=== PATIENT | female | born 1995 | race Caucasian/White ===

== ENCOUNTER → 2018-04-13 09:40 | Outpatient (CLI) | payer OTHER, SELFPAY ==
[2018-04-13 12:27] LABS: Hemoglobin 12.4 g/dL (12.0-16.0)
[2018-04-13 13:08] LABS: GTT (PREG) 1 Hour PP 50gm Dose 107 mg/dL (76-139)
== END ==
PROVIDERS: Visit Provider Specialist
DX: Z3A.26 26 weeks gestation of pregnancy (principal)
CPT/HCPCS: 36415; 82950; 85014; 85018

== ENCOUNTER → 2018-06-17 09:15 | Outpatient (CLI) | payer OTHER, SELFPAY ==
[2018-06-18 08:17] LABS: Strep Grp B PCR NEG for Grp B Strep
== END ==
PROVIDERS: Visit Provider Specialist
DX: Z34.03 Encounter for supervision of normal first pregnancy, third trimester (principal); Z3A.36 36 weeks gestation of pregnancy
CPT/HCPCS: 87653

== ENCOUNTER 2018-07-18 23:44 | Inpatient (IN) | payer OTHER, SELFPAY ==
[2018-07-19 01:28] LABS: Add Manual Diff / Slide Review NO; Basophils Percent Auto 0.2 % (0-2); Eosinophils Percent Auto 0.6 % (2-4); Hematocrit 36.1 % (36-46); Hemoglobin 12.3 g/dL (12.0-16.0); Mean Corpuscular HGB Conc 34.1 % (30-36); Mean Corpuscular Hemoglobin 31.1 PG (26-34); Mean Corpuscular Volume 91.2 fL (80-100); Monocytes Percent Auto 7.7 % (3-14); Neutrophils Absolute Auto 7000 /uL (3000-5900); Neutrophils Percent Auto 70.5 % (50-75); Platelet Count 195 X10^3/uL (150-400); Red Blood Cell Count 3.96 X10^6/uL (4.0-5.2); Red Cell Distribution Width 13.8 % (11.6-14.8)
--- NOTE | 2018-07-19 07:19 | PM.OBHP.1 ---
OB HPI Date/Time Date of admission: 07/19/18 Date Patient Seen: 07/19/18 Time Patient Seen: 07:30 History of Present Condition Chief complaint: evaluation of labor : 1 Para: 0 Estimated Date of Delivery: 07/13/18 Estimated Gestational Age (weeks): 40w 6d Narrative: Regina Moody is a 23 year old female, at 40+6 weeks gestation, who presented after rupture of membranes at home at approximately 9:40 PM on 07/18/18. Initial care with the [place] [facility] with transfer of care to Dr. Correa at 24 weeks. 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) Medical complications: none Preadmission Labs Blood type: O (+) positive -: Antibody screen: negative, GBS status: negative, HBsAG: negative, HIV: negative, HSV 2: positive and RPR/VDLR: negative -: Chlamydia screen: not detected and Gonorrhea screen: not detected -: Rubella: immune and Varicella: immune HCT: 41.3 HCAB: negative Quad screen: Normal Urine: Negative 1 hr GTT: 107 Evaluation Evaluation Baseline heart rate: 135 Variability: Moderate (11-25) monitor accelerations: Present monitor decelerations: Absent Contraction Frequency (minutes): 4 Uterine Contraction Intensity: Moderate Category of Tracing: I Cervical dilation (cm): 3 Cervical effacement (%): 90 station: -2 Laboratory results: Laboratory Tests 07/19/18 07/19/18 00:30 00:30 WBC 10.0 RBC 3.96 L Hgb 12.3 Hct 36.1 MCV 91.2 MCH 31.1 MCHC 34.1 RDW 13.8 Plt Count 195 Neut % (Auto) 70.5 Lymph % (Auto) 21.0 L [place] % (Auto) 7.7 Eos % (Auto) 0.6 L Baso % (Auto) 0.2 Neut # (Auto) 7000 H Blood Type O Positive Antibody Screen Negative [facility] Medical History Anxiety (Chronic) Genital herpes (Chronic) Social History marital status: Smoking Status: Former smoker Meds Home Medications Medication Instructions Recorded Confirmed Type breast pump #1 each 05/04/18 07/19/18 Rx valacyclovir [Valtrex] 500 mg PO DAILY 07/19/18 07/19/18 History Allergies Allergy/AdvReac Type Severity Reaction Status Date / Time adhesive Allergy Mild Verified 07/19/18 01:17 Review of Systems Constitutional Constitutional: Denies fever(s) and Denies headache(s) ENT Ears, Nose, Mouth, and Throat: No headache(s) Cardiovascular Cardiovascular: Denies chest pain Respiratory Respiratory: Denies cough Neurologic Neurologic: Denies headache(s) and Denies other visual disturbances Exam Const General: cooperative and healthy appearing HENMT Head: normal to inspection Ears: hearing grossly normal bilaterally Nose: external nose normal Face and sinus: normal facial exam Mouth: oral mucosae normal Teeth and gingiva: dentition normal Throat: posterior oropharynx normal Eyes General: appearance normal, both eyes and all related structures Neck Neck: normal visual inspection Resp Effort & Inspection: normal respiratory effort Auscultation: clear to auscultation bilaterally Cardio Rate: regular rate Rhythm: regular rhythm Presentation: vertex Estimated Weight (lbs): 8 Extrem General: normal to inspection and no pedal edema Objective Labs Result Diagrams: 07/19/18 00:30 Labs: Laboratory Results - last 24 hr 07/19/18 07/19/18 00:30 00:30 WBC 10.0 RBC 3.96 L Hgb 12.3 Hct 36.1 MCV 91.2 MCH 31.1 MCHC 34.1 RDW 13.8 Plt Count 195 Neut % (Auto) 70.5 Lymph % (Auto) 21.0 L [place] % (Auto) 7.7 Eos % (Auto) 0.6 L Baso % (Auto) 0.2 Neut # (Auto) 7000 H Blood Type O Positive Antibody Screen Negative Assessment and Plan (1) 40 weeks gestation of : Current visit: Yes Status: Acute 23 year old at 40+6 weeks gestation by first trimester US. GBS negative. SROM clear fluid at 9:40 PM on 07/18/18. Slow progress overnight though patient is becoming more painful and requesting epidural. Plan - Epidural now - May require pitocin augmentation - Anticipate
[2018-07-19 07:21] VITALS: BP 125/76
[2018-07-19] MEDS: LACTATED RINGERS 1,000 ML 100 ML IV (09:43)
[2018-07-19] MEDS: OXYTOCIN PREMIX 30 UNIT/500 ML PLAST..BAG IV (09:44)
--- NOTE | 2018-07-19 12:38 | PM.OBPNLAB ---
Date/Time Date Patient Seen: 07/19/18 Time Patient Seen: 12:26 Pain Control Pain control: tolerating well and epidural Pelvic Exam Dilation (cm): 4 Effacement (%): 90 station: -2 Contractions Monitor mode: External Pitocin rate (mU/min): 9 Contraction frequency (min): 3 Contraction pattern: Regular Status status: Category ll Heart Rate Baseline: 135 Monitor Accelerations: Present Monitor Decelerations: Prolonged (deceleration to 90s lasting 5 min when patient was turned to the left side, resolved when turned to the right side) Monitor Variability: Moderate Assessment and Plan Assessment: active labor Plan: continuous present management Comments:
--- NOTE | 2018-07-19 13:15 | PM.OBPNLAB ---
Date/Time Date Patient Seen: 07/19/18 Time Patient Seen: 13:16 Pain Control Pain control: tolerating well Comments: Feeling increased pelvic pressure Pelvic Exam Dilation (cm): 6 Effacement (%): 100 station: -2 Comments: Molding present, bloody show Contractions Monitor mode: External Pitocin rate (mU/min): 9 Contraction frequency (min): 3 Contraction pattern: Regular Status status: Category l Heart Rate Baseline: 135 Monitor Accelerations: Present Monitor Decelerations: Early Assessment and Plan Assessment: active labor Plan: continuous present management
--- NOTE | 2018-07-19 17:17 | PM.OBPNLAB ---
Date/Time Date Patient Seen: 07/19/18 Time Patient Seen: 17:00 Pain Control Pain control: tolerating well and epidural Pelvic Exam Dilation (cm): 6 Effacement (%): 100 station: -2 Contractions Monitor mode: External Pitocin rate (mU/min): 9 Contraction frequency (min): 3 Contraction pattern: Regular Status status: Category ll Heart Rate Baseline: 140 Monitor Accelerations: Present Monitor Decelerations: Variable Monitor Variability: Moderate Assessment and Plan Assessment: active labor Plan: other Comments: Little cervical change despite frequent contractions so IUPC placed to determine adequacy of contractions. Recheck cervix in two hours.
[2018-07-19] MEDS: CEFAZOLIN 2 GM/100 ML FROZ.PIGGY IV (19:59)
--- NOTE | 2018-07-19 22:38 | PM.OBPRVD ---
Events: Labor Augmentation, Prolonged Rupture of Membrane and Meconium Stained Fluid Delivery date: 07/19/18 Intrapartal events: Febrile Delivery monitor: external FHT and internal uterine Route of delivery: Laceration description: Perineal - 2nd Degree Delivery repair: vicryl Estimated blood loss (mL): 400 Anesthesia type: Epidural Narrative: VAGINAL DELIVERY NOTE BRIEF HISTORY: Patient is a 23-year-old at 40+6 weeks who gave on 07/19/18 at 9:58 p.m CISCO: 07/13/18 Hospital problems: 40 weeks of Epidural anesthesia Prolonged rupture of membranes STAGE I: Labor Patient presented to the center the night of 07/18/18 with spontaneous rupture of membranes with clear fluid at home at approximately 9:40 p.m. She was kari regularly with slow cervical change. Given ROM, pitocin was started for augmentation. She continued to progress slowly so IUPC was placed to determine adequacy of contractions. Patient progressed to complete at 21:23. heart tones were category 2 throughout labor due to intermittent late and variable decelerations. Prior to pushing patient developed a fever to 39 degrees Celsius and heart rate increased to the 170s though patient did not have foul-smelling amniotic fluid or abdominal pain to suggest chorioamnionitis. She did receive a dose of cefazolin at 22 hours of rupture. Stage one duration: 11 hours and 43 minutes. Analgesia: epidural. STAGE II: Delivery The second stage of labor lasted 35 minutes. Spontaneous vaginal delivery occurred at 9:58 p.m. on 07/19/18. Presentation was SOP[place]. There was a tight nuchal cord which was reduced. There was an approximately 1 minute shoulder dystocia relieved with Deshawn maneuver. There was a gush of thick meconium with delivery of the . Infant was placed on mother's abdomen. 1 minute was 2 so was taken to the warmer where he received PPV briefly with rapid improvement of respirations. He was quickly transitioned back to mother. Five and 10 minutes Apgars were 6 and 8 respectively. Cord gases were requested however not completed. STAGE III: Placenta/Cord The third stage of labor lasted 5 minutes. Placenta delivered after active management with a three-vessel cord and appeared intact. Fundus was firm at umbilicus. He second degree vaginal and perineal laceration was repaired with 4 O Vicryl in the usual fashion. Hemostasis achieved. EBL: 400 mL. Mother's temperature returned to normal shortly after delivery. Needle and sponge counts were correct. The vagina was inspected and no items were left in situ. Patient was doing well with Kyle , her and at bedside.
--- NOTE | 2018-07-19 22:42 | P.PCNOB_ITS ---
Events: Labor Augmentation, Prolonged Rupture of Membrane and Meconium Stained Fluid Delivery date: 07/19/18 Intrapartal events: Febrile Delivery monitor: external FHT and internal uterine Route of delivery: Laceration description: Perineal - 2nd Degree Delivery repair: vicryl Estimated blood loss (mL): 400 Anesthesia type: Epidural Narrative: VAGINAL DELIVERY NOTE BRIEF HISTORY: Patient is a 23-year-old at 40+6 weeks who gave on 07/19/18 at 9:58 p.m CISCO: 07/13/18 Hospital problems: 40 weeks of Epidural anesthesia Prolonged rupture of membranes STAGE I: Labor Patient presented to the center the night of 07/18/18 with spontaneous rupture of membranes with clear fluid at home at approximately 9:40 p.m. She was kari regularly with slow cervical change. Given ROM, pitocin was started for augmentation. She continued to progress slowly so IUPC was placed to determine adequacy of contractions. Patient progressed to complete at 21: 23. heart tones were category 2 throughout labor due to intermittent late and variable decelerations. Prior to pushing patient developed a fever to 39 degrees Celsius and heart rate increased to the 170s though patient did not have foul-smelling amniotic fluid or abdominal pain to suggest chorioamnionitis. She did receive a dose of cefazolin at 22 hours of rupture. Stage one duration: 11 hours and 43 minutes. Analgesia: epidural. STAGE II: Delivery The second stage of labor lasted 35 minutes. Spontaneous vaginal delivery occurred at 9:58 p.m. on 07/19/18. Presentation was SOPHIE. There was a tight nuchal cord which was reduced. There was an approximately 1 minute shoulder dystocia relieved with Deshawn maneuver. There was a gush of thick meconium with delivery of the infant. Infant was placed on mother's abdomen. 1 minute was 2 so was taken to the warmer where he received PPV briefly with rapid improvement of respirations. He was quickly transitioned back to mother. Five and 10 minutes Apgars were 6 and 8 respectively. Cord gases were requested however not completed. STAGE III: Placenta/Cord The third stage of labor lasted 5 minutes. Placenta delivered after active management with a three-vessel cord and appeared intact. Fundus was firm at umbilicus. He second degree vaginal and perineal laceration was repaired with 4 O Vicryl in the usual fashion. Hemostasis achieved. EBL: 400 mL. Mother's temperature returned to normal shortly after delivery. Needle and sponge counts were correct. The vagina was inspected and no items were left in situ. Patient was doing well with Kyle , her and at bedside.
[2018-07-20] MEDS: IBUPROFEN 600 MG TABLET PO ×2 (01:58→09:02)
[2018-07-20] MEDS: ACETAMINOPHEN 325 MG TABLET 650 MG PO ×2 (01:59→09:01)
[2018-07-20] MEDS: DOCUSATE 250 MG CAPSULE PO (09:01)
[2018-07-20 09:06] LABS: Add Manual Diff / Slide Review NO; Basophils Percent Auto 0.2 % (0-2); Eosinophils Percent Auto 0.4 % (2-4); Hematocrit 30.6 % (36-46); Hemoglobin 10.6 g/dL (12.0-16.0); Lymphocytes Percent Auto 9.9 % (25-40); Mean Corpuscular HGB Conc 34.6 % (30-36); Mean Corpuscular Hemoglobin 31.5 PG (26-34); Mean Corpuscular Volume 91.2 fL (80-100); Monocytes Percent Auto 6.6 % (3-14); Neutrophils Absolute Auto 17200 /uL (3000-5900); Neutrophils Percent Auto 82.9 % (50-75); Platelet Count 156 X10^3/uL (150-400); Red Blood Cell Count 3.35 X10^6/uL (4.0-5.2); Red Cell Distribution Width 13.8 % (11.6-14.8); White Blood Cell Count 20.7 X10^3/uL (4.5-11.0)
--- NOTE | 2018-07-20 15:41 | PM.OBPN.1 ---
Subjective - OB Interval history: The patient reports she is sore all over but doing well. Bleeding is similar to a period. is going well. Pain is well controlled. She is ambulating, eating and voiding without difficulty. [place] baby status: doing well [place] feeding status: exclusively breast feeding Date Patient Seen: 07/20/18 Time Patient Seen: 14:42 Exam Vital Signs (past 8 hours): Temperature 97.9? blood pressure 122/79 heart rate 94 respirations 16 Narrative Exam Narrative: General: Awake and alert, no acute distress. HEENT: NCAT, EOMI, moist oral mucosa CV: Regular rate and rhythm, no murmurs, rubs or gallops Lungs: CTAB, no wheezes, rales, or rhonchi Abdomen: Soft, nontender; bowel tones active; uterus firm 1 cm below umbilicus Extremities: Warm, trace edema bilaterally, 2+ pedal pulses bilaterally Objective Labs Result Diagrams: 07/20/18 07:00 Labs: Laboratory Results - last 24 hr 07/20/18 07:00 WBC 20.7 H D RBC 3.35 L Hgb 10.6 L Hct 30.6 L MCV 91.2 MCH 31.5 MCHC 34.6 RDW 13.8 Plt Count 156 Neut % (Auto) 82.9 H Lymph % (Auto) 9.9 L [place] % (Auto) 6.6 Eos % (Auto) 0.4 L Baso % (Auto) 0.2 Neut # (Auto) 35271 H Assessment & Plan (1) 40 weeks gestation of : Status: Acute Current Visit: Yes (2) (spontaneous vaginal delivery): Status: Acute Current Visit: Yes Plan day: 1 plan OB: routine care Comments: Patient is doing very well day 1. No further fevers. No indication for continued antibiotics. Anticipate discharge home tomorrow. Time Spent With Patient Total time spent is greater than 50% in coordination of care (as documented) at patient's floor/unit and/or counseling patient: less than 15 minutes
--- NOTE | 2018-07-20 15:44 | P.PNOB_ITS ---
Subjective - OB Interval history: The patient reports she is sore all over but doing well. Bleeding is similar to a period. is going well. Pain is well controlled. She is ambulating, eating and voiding without difficulty. [place] baby status: doing well [place] feeding status: exclusively breast feeding Date Patient Seen: 07/20/18 Time Patient Seen: 14:42 Exam Vital Signs (past 8 hours): Temperature 97.9? blood pressure 122/79 heart rate 94 respirations 16 Narrative Exam Narrative: General: Awake and alert, no acute distress. HEENT: NCAT, EOMI, moist oral mucosa CV: Regular rate and rhythm, no murmurs, rubs or gallops Lungs: CTAB, no wheezes, rales, or rhonchi Abdomen: Soft, nontender; bowel tones active; uterus firm 1 cm below umbilicus Extremities: Warm, trace edema bilaterally, 2+ pedal pulses bilaterally Objective Labs Result Diagrams: 07/20/18 07:00 Labs: Laboratory Results - last 24 hr 07/20/18 07:00 WBC 20.7 H D RBC 3.35 L Hgb 10.6 L Hct 30.6 L MCV 91.2 MCH 31.5 MCHC 34.6 RDW 13.8 Plt Count 156 Neut % (Auto) 82.9 H Lymph % (Auto) 9.9 L [place] % (Auto) 6.6 Eos % (Auto) 0.4 L Baso % (Auto) 0.2 Neut # (Auto) 66614 H Assessment & Plan (1) 40 weeks gestation of : Status: Acute Current Visit: Yes (2) (spontaneous vaginal delivery): Status: Acute Current Visit: Yes Plan day: 1 plan OB: routine care Comments: Patient is doing very well day 1. No further fevers. No indication for continued antibiotics. Anticipate discharge home tomorrow. Time Spent With Patient Total time spent is greater than 50% in coordination of care (as documented) at patient's floor/unit and/or counseling patient: less than 15 minutes
[2018-07-20] MEDS: OXYCODONE/ACETAMINOPHEN 5/325 TABLET 1 TAB PO (20:54)
[2018-07-21] MEDS: OXYCODONE/ACETAMINOPHEN 5/325 TABLET 1 TAB PO ×2 (00:48→05:09)
[2018-07-21] MEDS: IBUPROFEN 600 MG TABLET PO ×3 (00:49→13:08)
[2018-07-21] MEDS: DOCUSATE 250 MG CAPSULE PO (08:21)
[2018-07-21 08:39] LABS: Add Manual Diff / Slide Review NO; Basophils Percent Auto 0.3 % (0-2); Hematocrit 29.1 % (36-46); Hemoglobin 10.1 g/dL (12.0-16.0); Lymphocytes Percent Auto 16.2 % (25-40); Mean Corpuscular HGB Conc 34.6 % (30-36); Mean Corpuscular Hemoglobin 31.5 PG (26-34); Mean Corpuscular Volume 91.1 fL (80-100); Monocytes Percent Auto 4.9 % (3-14); Neutrophils Absolute Auto 11200 /uL (3000-5900); Neutrophils Percent Auto 77.6 % (50-75); Platelet Count 164 X10^3/uL (150-400); Red Blood Cell Count 3.19 X10^6/uL (4.0-5.2); Red Cell Distribution Width 13.8 % (11.6-14.8); White Blood Cell Count 14.4 X10^3/uL (4.5-11.0)
--- NOTE | 2018-07-21 11:50 | PM.OBDS.1 ---
Discharge Providers Date of admission: 07/18/18 23:44 Consults: 07/20/18 00:34 Consult to [employer] Routine Comment: Discharge provider: Maty Easton DO Discharge Date: 07/21/18 Summary Date Patient Seen: 07/21/18 Time Patient Seen: 08:00 Hospital Course: Patient is a 23-year-old G1 now P1 who delivered on 07/19/18 via spontaneous vaginal delivery at 40 weeks and 6 days gestation. Patient presented to the hospital with rupture of membranes and was eventually started on Pitocin due to lack of spontaneous progress. She received 1 dose of cefazolin at 22 hours of rupture of membranes however went on to develop a fever approximately 1 hour prior to delivery. Total rupture of membranes was 24 hours. She was not diagnosed with chorioamnionitis due to lack of abdominal pain or foul-smelling amniotic fluid. Delivery was complicated by a 1 minute shoulder dystocia and required a brief period of PPV before returning to mother's arms. Patient's fever resolved immediately after delivery. A second-degree vaginal and perineal laceration was repaired in the usual fashion. course was uncomplicated. No further fevers. Bleeding was moderate and pain well controlled. was going very well prior to discharge. Counseled patient call for fevers, bleeding through more than a pad an hour or severe pain. She will follow up with Dr. Correa or Dr. Easton in 6 weeks for visit. Exam Temperature 98.1? blood pressure 106/64 heart rate 81 respirations 16 General: Awake and alert, no acute distress. HEENT: NCAT, EOMI, moist oral mucosa CV: Regular rate and rhythm, no murmurs, rubs or gallops Lungs: CTAB, no wheezes, rales, or rhonchi Abdomen: Soft, nontender; bowel tones active; uterus firm 1 cm below umbilicus Extremities: Warm, no edema, 2+ pedal pulses bilaterally Peripartum Data Infant Delivery Method: Natural Vaginal Laceration description: Vaginal - 2nd Degree complications: none Discharge Diagnosis (1) 40 weeks gestation of : Status: Acute (2) (spontaneous vaginal delivery): Status: Acute Status at Discharge Functional status at discharge: independent ambulation Overall status at discharge: patient is back to baseline Time Spent with Patient Total time spent providing and/or coordinating discharge services: Less than 30 minutes Objective Labs Result Diagrams: 07/21/18 07:50 Labs: Laboratory Results - last 24 hr 07/21/18 07:50 WBC 14.4 H RBC 3.19 L Hgb 10.1 L Hct 29.1 L MCV 91.1 MCH 31.5 MCHC 34.6 RDW 13.8 Plt Count 164 Neut % (Auto) 77.6 H Lymph % (Auto) 16.2 L [place] % (Auto) 4.9 Eos % (Auto) 1.0 L Baso % (Auto) 0.3 Neut # (Auto) 89409 H Discharge Plan Discharge Plan Patient Disposition: Home Discharge Med Rec/Prescriptions Prescriptions: New oxycodone-acetaminophen 5-325 mg Tablet 1 tab PO Q4HR Qty: 10 RF: 0 ibuprofen 600 mg Tablet 600 mg PO Q6HR PRN (Reason: Pain, Mild (1-3)) Qty: 30 RF: 0 docusate sodium 250 mg Capsule 250 mg PO BID Qty: 30 RF: 0 Continue valacyclovir [Valtrex] 500 mg Tablet 500 mg PO DAILY RF: 0 No Action breast pump device .Route .MEDSUPPLY Qty: 1 RF: 0 Follow up/Referrals: Merari Correa MD [Physician] - 6 Weeks (Please call [phone] to schedule your follow up appointment.) Visit Report/Discharge Packet Stand Alone Forms: Discharge: Care Visit Report Forms: Stroke Signs & Symptoms Discharge Data Attending Provider: Maty Easton Admit Date/Time: 07/18/18 23:44 Discharges patient from system. Discharge Date/Time: 07/21/18 19:00
[2018-07-21 17:32] VITALS: BP 124/84; PULSE 94; RESP 16; TEMP 36.2
== END 2018-07-21 19:00 | disposition home or self-care (01) | DRG 807 ==
PROVIDERS: Admitting Provider Family Medicine; Visit Provider Family Medicine
DX: O69.81X0 Labor and delivery complicated by cord around neck, without compression, not applicable or unspecified (principal); Z37.0 Single live birth; Z3A.40 40 weeks gestation of pregnancy; O70.1 Second degree perineal laceration during delivery; O77.0 Labor and delivery complicated by meconium in amniotic fluid
CPT/HCPCS: 01967; 36415; 59050; 59410; 85025; 86850; 86900; 86901; G0379; J0690; J2590

== ENCOUNTER → 2020-03-03 17:45 | Outpatient (CLI) | payer OTHER, SELFPAY ==
--- NOTE | 2020-03-03 | DI.MRI.S_ITS ---
PROCEDURE: MR WRIST RT WO CON INDICATIONS: cyst TECHNIQUE: Noncontrast coronal proton density fast spin echo and T2 fast spin echo with fat saturation; coronal 3-D gradient echo, axial T1 spin echo and T2 fast spin echo with fat saturation, sagittal T1 spin echo through the wrist. COMPARISON: None. FINDINGS: Image quality: Diagnostic. Bones and cartilage: No acute fracture, dislocation, or suspicious osseous lesion involving the osseous structures of the wrist is evident. Bony alignment of the carpal bones is within normal limits. No widening of the scapholunate or lunotriquetral joints is evident. The alignment of the distal radioulnar joint is within normal limits. No significant joint effusions or degenerative changes of the wrist are evident. Carpal ligaments: Evaluation of the intrinsic and extrinsic ligaments of the wrist is suboptimal without intra-articular contrast. There is slight heterogeneity involving the scapholunate ligament without a full-thickness tear appreciated. However, along the dorsal aspect of the scapholunate ligament on the axial images there is a ganglion cyst emanating from the level of the scaphoid, which is noted to extend into the deep portion of the wrist and most likely represents a ganglion cyst emanating from a small perforating tear involving one of the intrinsic ligaments. A portion of this ganglion cyst extends towards the dorsal aspect of the scapholunate ligament. There is also a small amount of fluid tracking between the trapezoid and capitate bones. This ganglion cyst measures approximately 1.1 x 0.9 x 1.2 cm (image 13, series 9). The lunotriquetral ligament is grossly unremarkable. There are punctate ganglion cysts identified on the periphery of the radiolunate ligaments at the radial attachment along the volar aspect of the wrist (image 10, series 4). No full-thickness tear involving the radiolunate ligaments are evident. Otherwise, the dorsal and volar extrinsic ligaments are within normal limits. Triangular fibrocartilage complex: Evaluation of the triangular fibrocartilage complex is suboptimal/inadequate without intra-articular contrast. However, no definite full-thickness tear of the triangular fibrocartilage disc is evident. The meniscal homolog is grossly unremarkable. The extensor carpi ulnaris tendon is within normal limits and noted to be intact. Tendons and soft tissues: The carpal tunnel structures appear normal, including the median nerve. The ulnar nerve appears normal within Guyon's canal. All six extensor tendon compartments demonstrate normal morphology, without pathologic tendon sheath fluid. Incidental note is made of very subtle edema involving the pronator quadratus muscle. IMPRESSION: 1. Moderate-sized ganglion cyst along the dorsal aspect of the wrist is likely related to a small perforating tear involving one of the intrinsic ligaments of the wrist, which may represent a small perforating tear of the scapholunate ligament or potentially the ligament between the trapezoid and capitate. 2. Punctate ganglion cysts along the periphery of the radiolunate ligaments may be related to previous partial thickness injury. 3. Minimal edema of the pronator quadratus may represent a muscle strain. A neurogenic process is difficult to exclude. Dictated by: Justin Mcintyre M.D. on 03/06/2020 at 8:46 Approved by: Justin Mcintyre M.D. on 03/06/2020 at 9:01
== END ==
PROVIDERS: Referring Provider Family Medicine; Visit Provider Family Medicine
DX: M67.431 Ganglion, right wrist (principal)
CPT/HCPCS: 73221

== ENCOUNTER → 2020-06-19 17:07 | Outpatient (CLI) | payer OTHER, SELFPAY ==
--- NOTE | 2020-06-19 17:09 | DI.US.S_ITS ---
PROCEDURE: US OB <= 14 WEEKS FETUS INDICATIONS: Initial US for dating, confirm . OUTSIDE/PRIOR DATING DATA: Last menstrual period (LMP): 04/22/2020 LMP-based estimated date of delivery (CISCO): 01/27/2021 First dating scan (date and location): 06/19/2020 Estimated date of delivery ([facility]ISCO) from first dating scan: 01/17/2021 TECHNIQUE: Real-time scanning was performed of the fetus and maternal pelvic organs, with image documentation. COMPARISON: None. FINDINGS: Embryo: [place]-rump length measuring 2.01 cm, gestational age 8 weeks 4 days. A heart rate 169 bpm. Yolk sac is seen. No perigestational hemorrhage. Cervical length 4 cm. Measurement variability in dating: +/- 4 weeks by LMP, +/- 7 days by mean sac diameter (use before 6 weeks gestation if crown-rump length not able to be measured), +/- 5 days by crown-rump length (up to 8 weeks 6 days gestation), +/- 7 days by crown-rump length (up to 13 weeks 6 days gestation). Maternal organs: Ovaries are within normal limits. Right ovarian anechoic cyst measuring 4 cm. Limited images through the kidneys demonstrate no hydronephrosis. IMPRESSION: 1. [place] living intrauterine at 8 weeks 4 days based on today's crown rump length. 2. No perigestational hemorrhage. 3. Right ovarian simple cyst measuring 4 cm. Dictated by: Evan Jara M.D. on 06/20/2020 at 9:40 Approved by: Evan Jara M.D. on 06/20/2020 at 9:44
== END ==
PROVIDERS: Referring Provider Family Medicine; Visit Provider Family Medicine
DX: O34.81 Maternal care for other abnormalities of pelvic organs, first trimester (principal); N83.291 Other ovarian cyst, right side; Z3A.08 8 weeks gestation of pregnancy
CPT/HCPCS: 76801

== ENCOUNTER → 2020-07-27 16:27 | Outpatient (CLI) | payer OTHER, SELFPAY ==
[2020-07-27 16:55] LABS: Add Manual Diff / Slide Review NO; Basophils Absolute Auto 0 /uL (0-100); Basophils Percent Auto 0.3 % (0-2); Eosinophils Absolute Auto 100 /uL (0-450); Eosinophils Percent Auto 0.8 % (2-4); Hematocrit 37.3 % (36-46); Hemoglobin 13.1 g/dL (12.0-16.0); Lymphocytes Absolute Auto 2100 /uL (1100-4500); Lymphocytes Percent Auto 22.4 % (25-40); Mean Corpuscular HGB Conc 35.2 % (30-36); Mean Corpuscular Hemoglobin 30.7 PG (26-34); Mean Corpuscular Volume 87.1 fL (80-100); Monocytes Absolute Auto 500 /uL (0-900); Monocytes Percent Auto 5.1 % (3-14); Neutrophils Absolute Auto 6700 /uL (1500-7000); Neutrophils Percent Auto 71.4 % (50-75); Platelet Count 235 X10^3/uL (150-400); Red Blood Cell Count 4.28 X10^6/uL (4.0-5.2); Red Cell Distribution Width 12.9 % (11.6-14.8); White Blood Cell Count 9.4 X10^3/uL (4.5-11.0)
[2020-07-27 17:57] LABS: Hepatitis B Surface Antigen NEGATIVE s/c (NEGATIVE); Rubella Antibody IgG 11.5 IU/mL (>15)
[2020-07-27 18:13] LABS: HIV 1 & 2 Ab/Ag 4th Gen Combo NEGATIVE (NEGATIVE); Hep C Virus Ab w/Reflex Quant NEGATIVE s/c (NEGATIVE)
[2020-07-28 07:09] LABS: RPR Screen Non Reactive (Non Reactive)
[2020-07-28 10:04] LABS: Varicella IgG Antibody 676 index (Immune >165)
== END ==
PROVIDERS: PCP Family Medicine; Referring Provider Family Medicine; Visit Provider Family Medicine
DX: Z34.81 Encounter for supervision of other normal pregnancy, first trimester (principal)
CPT/HCPCS: 36415; 80055; 86787; 86803; 86850; 86900; 86901; 87389

== ENCOUNTER → 2020-09-06 12:05 | Outpatient (CLI) | payer OTHER, SELFPAY ==
--- NOTE | 2020-09-06 12:06 | DI.US.S_ITS ---
PROCEDURE: US OB >= 14 WEEKS FETUS INDICATIONS: ANATOMY OUTSIDE/PRIOR DATING DATA: Last menstrual period (LMP): 04/22/20. LMP-based estimated date of delivery (CISCO): 01/27/21 First dating scan (date and location): 06/19/20 . Estimated date of delivery (CISCO) from first dating scan: 01/25/21 TECHNIQUE: Real-time scanning was performed of the fetus, with image documentation and biometric measurements. Endovaginal scanning: Not performed COMPARISON: [facility], OB <= 14 WEEKS FETUS, 06/19/2020, 17:29. [facility], OB >= 14 WEEKS FETUS, 03/25/2018, 15:26. FINDINGS: General: A single living intrauterine gestation is present. Presentation: Variable. Placenta: Placental position is posterior , without previa. Amniotic fluid index: 18.0 cm, normal range is 5-24 cm. Largest pocket 7.2 cm heart rate: 153 beats per minute. Maternal cervical canal: 4.8 cm long. Normal lower limit is 2.5 cm. biometrics: Biparietal diameter: 4.5 cm, 19 weeks 4 days Head circumference: 16.1 cm, 19 weeks 0 days (9th percentile) Abdominal circumference: 14.5 cm, 19 weeks 6 days Femur length: 2.9 cm, 19 weeks 0 days Estimated gestational age from initial scan: 19 weeks 6 days Composite gestational age from present scan: 19 weeks 3 days Estimated weight and percentile: 291 g, 22nd percentile Measurement variability for biometric dating: +/- 7 days from 14 weeks to 15 weeks 6 days gestation, +/- 10 days from 16 weeks to 21 weeks 6 days gestation, +/- 2 weeks from 22 weeks to 27 weeks 6 days gestation, +/- 3 weeks for 28 weeks gestation or later. weight reference: 4500 g or EFW >90/95% is considered macrosomia or large for gestational age. EFW <10% is small for gestational age. EFW 5% or less is considered intra-uterine growth restriction. Anatomic survey: Neuro: Ventricles are non-dilated at less than 10 mm. Cisterna magna is normal at 3-11 mm. Cerebellum is normal in size and morphology. Nuchal skin fold: Normal at less than 6 mm between 14-21 weeks gestational age. Face: Nose and lips, facial profile are normal. Spine: No evidence for spina bifida. Heart: 4-chambered heart is present, with normal ventricular outflow tracts. Diaphragm: Diaphragm is intact. Stomach: Left-sided stomach is present. Kidneys: No hydronephrosis. Normal is less than 5 mm in 2nd trimester, less than 7 mm in 3rd trimester. Cord: 3-vessel cord has orthotopic insertion. Bladder: Normal in size. Extremities: All 4 extremities identified. IMPRESSION: Single living intrauterine fetus in variable presentation. Expected interval growth as above Normal anatomic survey Dictated by: Washington Etienne M.D. on 09/06/2020 at 17:15 Approved by: Washington Etienne M.D. on 09/06/2020 at 17:19
== END ==
PROVIDERS: PCP Family Medicine; Referring Provider Family Medicine; Visit Provider Family Medicine
DX: Z34.92 Encounter for supervision of normal pregnancy, unspecified, second trimester (principal); Z3A.20 20 weeks gestation of pregnancy
CPT/HCPCS: 76811

== ENCOUNTER → 2020-10-19 17:52 | Outpatient (CLI) | payer OTHER, SELFPAY ==
[2020-10-19 18:35] LABS: RBC Urine None Seen (0-5/HPF)
[2020-10-19 18:58] LABS: Appearance Urine UA SL CLOUDY; Bilirubin Urine UA NEGATIVE (NEGATIVE); Color Urine UA YELLOW; Glucose Urine UA NEGATIVE (Negative); Ketones Urine UA NEGATIVE (NEGATIVE); Leukocyte Esterase Urine UA 1+ (NEGATIVE); Nitrite Urine UA NEGATIVE (Negative); Occult Blood Urine UA NEGATIVE (Negative); Protein Urine UA NEGATIVE (Negative); Specific Gravity Urine UA 1.015 (1.000-1.035); Urobilinogen Urine UA 0.2 E.U./dL (0.2)
[2020-10-19 19:18] LABS: Amorphous Sediment Urine 2+; Bacteria Urine Few (2-10); Culture Indicated Urine Specimen Cultured; Mucus Urine 1+ (Negative); Squamous Epithelial Cell Urine 1-5 /HPF (0-5/HPF); WBC Urine 5-10/HPF (0-5/HPF)
== END ==
PROVIDERS: PCP Family Medicine; Visit Provider Family Medicine
DX: Z34.90 Encounter for supervision of normal pregnancy, unspecified, unspecified trimester (principal); Z3A.26 26 weeks gestation of pregnancy
CPT/HCPCS: 81001; 87077; 87086

== ENCOUNTER → 2020-10-24 13:34 | Outpatient (CLI) | payer OTHER, SELFPAY ==
[2020-10-24 15:41] LABS: Hematocrit 28.5 % (36-46); Hemoglobin 9.8 g/dL (12.0-16.0)
[2020-10-24 15:57] LABS: GTT (PREG) 1 Hour PP 50gm Dose 148 mg/dL (76-139)
== END ==
PROVIDERS: PCP Family Medicine; Referring Provider Family Medicine; Visit Provider Family Medicine
DX: Z34.90 Encounter for supervision of normal pregnancy, unspecified, unspecified trimester (principal); Z3A.26 26 weeks gestation of pregnancy
CPT/HCPCS: 36415; 82950; 85014; 85018

== ENCOUNTER → 2020-10-27 14:10 | Outpatient (CLI) | payer OTHER, SELFPAY ==
--- NOTE | 2020-10-27 14:11 | DI.US.S_ITS ---
PROCEDURE: US OB LIMITED INDICATIONS: LGA OUTSIDE/PRIOR DATING DATA: Last menstrual period (LMP): 04/22/2020. LMP-based estimated date of delivery (CISCO): 01/28/2020 . First dating scan (date and location): 06/19/2020 . Estimated date of delivery (CISCO) from first dating scan: 01/25/2021 . TECHNIQUE: Real-time scanning was performed of the fetus, with image documentation and biometric measurements. Endovaginal scanning: No COMPARISON: [facility], OB >= 14 WEEKS FETUS, 09/06/2020, 12:23. FINDINGS: General: A single living intrauterine gestation is present. Presentation: Vertex. Placenta: Placental position is posterior , without previa. Amniotic fluid index: 30.0 cm, normal range is 5-24 cm. heart rate: 143 beats per minute. Maternal cervical canal: 6.2 cm long. Normal lower limit is 2.5 cm. biometrics: Biparietal diameter: 27 weeks 4 days Head circumference: 26 weeks 6 days Abdominal circumference: 27 weeks 6 days Femur length: 28 weeks 1 day Estimated gestational age from initial scan: 27 weeks 1 Composite gestational age from present scan: 27 weeks 4 days Estimated weight and percentile: 1128 g; 65th percentile Measurement variability for biometric dating: +/- 7 days from 14 weeks to 15 weeks 6 days gestation, +/- 10 days from 16 weeks to 21 weeks 6 days gestation, +/- 2 weeks from 22 weeks to 27 weeks 6 days gestation, +/- 3 weeks for 28 weeks gestation or later. weight reference: 4500 g or EFW >90/95% is considered macrosomia or large for gestational age. EFW <10% is small for gestational age. EFW 5% or less is considered intra-uterine growth restriction. Other: Not applicable. IMPRESSION: 1. Single living IUP redemonstrated and interval growth is normal. 2. Polyhydramnios with amniotic fluid index measuring 30.0 cm. Dictated by: Hugh CHIN Interpreted: Perry Nava MD on 10/27/2020 at 15:21 Approved by: Perry Nava M.D. on 10/27/2020 at 16:09
== END ==
PROVIDERS: PCP Family Medicine; Referring Provider Family Medicine; Visit Provider Family Medicine
DX: O36.62X0 Maternal care for excessive fetal growth, second trimester, not applicable or unspecified (principal); O40.2XX0 Polyhydramnios, second trimester, not applicable or unspecified; Z3A.27 27 weeks gestation of pregnancy
CPT/HCPCS: 76815

== ENCOUNTER → 2020-10-30 08:29 | Outpatient (CLI) | payer OTHER, SELFPAY ==
[2020-10-30 09:54] LABS: Add Manual Diff / Slide Review NO; Basophils Absolute Auto 0 /uL (0-100); Basophils Percent Auto 0.2 % (0-2); Eosinophils Absolute Auto 0 /uL (0-450); Eosinophils Percent Auto 0.7 % (2-4); Hematocrit 31.5 % (36-46); Hemoglobin 10.9 g/dL (12.0-16.0); Lymphocytes Absolute Auto 2700 /uL (1100-4500); Lymphocytes Percent Auto 38.8 % (25-40); Mean Corpuscular HGB Conc 34.7 % (30-36); Mean Corpuscular Hemoglobin 31.5 PG (26-34); Monocytes Absolute Auto 500 /uL (0-900); Monocytes Percent Auto 6.9 % (3-14); Neutrophils Absolute Auto 3700 /uL (1500-7000); Neutrophils Percent Auto 53.4 % (50-75); Platelet Count 223 X10^3/uL (150-400); Red Blood Cell Count 3.46 X10^6/uL (4.0-5.2); Red Cell Distribution Width 15.8 % (11.6-14.8); White Blood Cell Count 6.9 X10^3/uL (4.5-11.0)
[2020-10-30 10:51] LABS: HEMOLYSIS < 15 (0-50); Iron 81 ug/dL (37-170)
[2020-10-30 11:01] LABS: Percent Iron Saturation 18 % (15-50); Total Iron Binding Capacity 447 ug/dL (265-497); Transferrin 348 mg/dL (206-381)
== END ==
PROVIDERS: PCP Family Medicine; Referring Provider Family Medicine; Visit Provider Family Medicine
DX: O99.019 Anemia complicating pregnancy, unspecified trimester (principal)
CPT/HCPCS: 36415; 83540; 83550; 85025

== ENCOUNTER 2020-11-02 17:41 | Outpatient (CLI) | payer OTHER, SELFPAY ==
--- NOTE | 2020-11-02 18:19 | PM.OBTRLD ---
Visit Information Visit Information Date of evaluation: 11/02/20 Primary OB Provider: Maty Easton Reason for Evaluation: Yes non-stress test non-stress test reason: other (polyhydramnios) Vital Signs Vital Signs: Temperature 36.6? Blood pressure 102/71 Pulse 87 PFSH Medical History Anxiety Asthma Genital herpes (~2015) (spontaneous vaginal delivery) Surgical History History of surgical removal of ganglion cyst (~05/10/20) Sedated Family History Mother Hypertension Mental health problem Ovarian cyst Depression Anxiety Grandfather Cancer Stroke Parkinson's disease Grandmother Cancer Mental health problem Grandfather Cancer Grandmother Hypertension Congestive heart failure Father Cancer Social History marital status: number of children: 1 household members: spouse and children lives independently: Yes caregiver/support person: No housing: apartment pets and animals: No education level: high school 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 Very occasional, once every few weeks.) during the past year weight has: remained stable Type(s) of exercise: walking frequency: daily duration: 45-60 minutes/day Evaluation Evaluation Baseline heart rate: 130 Variability: Moderate (11-25) monitor accelerations: Present monitor decelerations: Absent Category of Tracing: Reactive Diagnosis, Plan/Disposition Plan/Disposition Plan: Patient is a 25-year-old at 28 weeks gestation with recently diagnosed polyhydramnios. Suspect gestational diabetes. She did not pass the 1 hour GTT but was unable to complete the 3 hour so will start checking blood sugars 4 times a day. Repeat NEGRO and NST in 1 week. Follow up in clinic in 1 week as scheduled. OB Disposition: home
== END 2020-11-02 18:27 | disposition home or self-care (01) ==
LOC: LABOR 17:43 → OB 11-03 09:25
PROVIDERS: PCP Family Medicine; Referring Provider Family Medicine; Visit Provider Family Medicine
DX: O40.3XX0 Polyhydramnios, third trimester, not applicable or unspecified (principal); Z3A.28 28 weeks gestation of pregnancy
CPT/HCPCS: 59025; G0378; G0379

== ENCOUNTER → 2020-11-09 12:15 | Outpatient (CLI) | payer OTHER, SELFPAY ==
--- NOTE | 2020-11-09 12:18 | DI.US.S_ITS ---
PROCEDURE: US OB LIMITED INDICATIONS: POLYHYDRAMNIOS OUTSIDE/PRIOR DATING DATA: Last menstrual period (LMP): 04/22/20. LMP-based estimated date of delivery (CISCO): 01/28/20 . First dating scan (date and location): 06/19/20 . Estimated date of delivery (CISCO) from first dating scan: 01/25/21 . TECHNIQUE: Real-time scanning was performed of the fetus, with image documentation. Endovaginal scanning: Not needed COMPARISON: [facility], OB LIMITED, 10/27/2020, 14:21. FINDINGS: A single living intrauterine gestation is present. Presentation: Vertex. Placenta: Placental position is posterior , without previa. Amniotic fluid index: 26.7 cm, normal range is 5-24 cm. heart rate: 141 beats per minute. Maternal cervical canal: 5.0 cm long. Normal lower limit is 2.5 cm. Estimated gestational age from initial scan: 29 weeks 0 days . IMPRESSION: Single living intrauterine gestation, mild polyhydramnios, improved from prior study. Current NEGRO is 26.7 cm, at the upper 97th percentile. Prior value was 30 cm. The delivery date is projected to be centered on 01/25/21. Dictated by: Filipe Ramos M.D. on 11/09/2020 at 13:50 Approved by: Filipe Ramos M.D. on 11/09/2020 at 13:59
== END ==
PROVIDERS: PCP Family Medicine; Referring Provider Family Medicine; Visit Provider Family Medicine
DX: O40.3XX0 Polyhydramnios, third trimester, not applicable or unspecified (principal); Z3A.29 29 weeks gestation of pregnancy
CPT/HCPCS: 76815

== ENCOUNTER 2020-11-09 12:48 | Outpatient (CLI) | payer OTHER, SELFPAY ==
--- NOTE | 2020-11-09 13:21 | PM.OBTRLD ---
Visit Information Visit Information Date of evaluation: 11/09/20 Primary OB Provider: Maty Easton Reason for Evaluation: Yes non-stress test non-stress test reason: other (polyhydramnios) Vital Signs Vital Signs: Temperature 36.2? blood pressure 108/64 heart rate 87 PFSH Medical History Anxiety Asthma Genital herpes (~2015) (spontaneous vaginal delivery) Surgical History History of surgical removal of ganglion cyst (~05/10/20) Sedated Family History Mother Hypertension Mental health problem Ovarian cyst Depression Anxiety Grandfather Cancer Stroke Parkinson's disease Grandmother Cancer Mental health problem Grandfather Cancer Grandmother Hypertension Congestive heart failure Father Cancer Social History marital status: number of children: 1 household members: spouse and children lives independently: Yes caregiver/support person: No housing: apartment pets and animals: No education level: high school 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 Very occasional, once every few weeks.) during the past year weight has: remained stable Type(s) of exercise: walking frequency: daily duration: 45-60 minutes/day Evaluation Evaluation Baseline heart rate: 140 Variability: Moderate (11-25) monitor accelerations: Present monitor decelerations: Absent Category of Tracing: Reactive Diagnosis, Plan/Disposition Final Diagnosis (1) Polyhydramnios: Status: Acute (2) 29 weeks gestation of : Status: Acute Plan/Disposition Plan: 25-year-old at 29 weeks gestation with polyhydramnios. Suspect gestational diabetes but she will come to clinic today to review her blood sugars to confirm or refute diagnosis. NEGRO was 26 today, down from 30. Will continue weekly NST and NEGRO. OB Disposition: home
== END 2020-11-09 13:27 | disposition home or self-care (01) ==
LOC: OB 11-10 06:46
PROVIDERS: PCP Family Medicine; Referring Provider Family Medicine; Visit Provider Family Medicine
DX: O40.3XX0 Polyhydramnios, third trimester, not applicable or unspecified (principal); Z3A.29 29 weeks gestation of pregnancy
CPT/HCPCS: 59025; 76815; G0378; G0379

== ENCOUNTER 2020-11-16 14:13 | Outpatient (CLI) | payer OTHER, SELFPAY ==
--- NOTE | 2020-11-16 14:43 | PM.OBTRLD ---
Visit Information Visit Information Date of evaluation: 11/16/20 Primary OB Provider: Maty Easton On-call OB Provider: Merari Correa Reason for Evaluation: Yes non-stress test non-stress test reason: other (Polyhydramnios) Vital Signs Vital Signs: Temperature 98.6? blood pressure 112/66 [facility] Medical History Anxiety Asthma Genital herpes (~2015) (spontaneous vaginal delivery) Surgical History History of surgical removal of ganglion cyst (~05/10/20) Sedated Family History Mother Hypertension Mental health problem Ovarian cyst Depression Anxiety Grandfather Cancer Stroke Parkinson's disease Grandmother Cancer Mental health problem Grandfather Cancer Grandmother Hypertension Congestive heart failure Father Cancer Social History marital status: number of children: 1 household members: spouse and children lives independently: Yes caregiver/support person: No housing: apartment pets and animals: No education level: high school 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 Very occasional, once every few weeks.) during the past year weight has: remained stable Type(s) of exercise: walking frequency: daily duration: 45-60 minutes/day Evaluation Evaluation Baseline heart rate: 130 Variability: Moderate (11-25) monitor accelerations: Present monitor decelerations: Absent Category of Tracing: Reactive Diagnosis, Plan/Disposition Final Diagnosis (1) Polyhydramnios: Status: Acute (2) 30 weeks gestation of : Status: Acute Plan/Disposition Plan: 25-year-old at 30 weeks gestation with mild polyhydramnios. NST reactive. Ultrasound scheduled for today. Follow-up in clinic this afternoon as scheduled. OB Disposition: home
== END 2020-11-16 14:45 | disposition home or self-care (01) ==
LOC: LABOR 14:21 → OB 11-20 09:15
PROVIDERS: PCP Family Medicine; Referring Provider Family Medicine; Visit Provider Family Medicine
DX: O40.3XX0 Polyhydramnios, third trimester, not applicable or unspecified (principal); Z3A.30 30 weeks gestation of pregnancy
CPT/HCPCS: 59025; 76815; G0378; G0379

== ENCOUNTER → 2020-11-16 14:51 | Outpatient (CLI) | payer OTHER, SELFPAY ==
--- NOTE | 2020-11-16 14:52 | DI.US.S_ITS ---
PROCEDURE: US OB LIMITED INDICATIONS: NEGRO follow up OUTSIDE/PRIOR DATING DATA: Last menstrual period (LMP): April 22, 2020. LMP-based estimated date of delivery (CISCO): January 28, 2020 . First dating scan (date and location): June 19, 2020 . Estimated date of delivery (CISCO) from first dating scan: January 25, 2021 . TECHNIQUE: Real-time scanning was performed of the fetus, with image documentation. Endovaginal scanning: Not performed COMPARISON: [facility], OB LIMITED, 11/09/2020, 12:34. FINDINGS: A single living intrauterine gestation is present. heart rate is measured at 155 beats per minute. Amniotic fluid index: 21.1 cm, with largest vertical pocket measuring 6.6 cm. This falls within the 99th percentile for gestational age. Maternal cervical canal: 4.9 cm long. Normal lower limit is 2.5 cm. Estimated gestational age from initial scan: 30 weeks and 0 days . IMPRESSION: 1. Single living intrauterine gestation with estimated gestational age of approximately 30 weeks and 0 days. 2. Four-quadrant NEGRO measuring 21.1 cm which measures at the 99th percentile for gestational age is compatible with reported history of polyhydramnios. Recommend continued clinical and imaging surveillance. Dictated by: Gary Ahumada M.D. on 11/16/2020 at 16:11 Approved by: Gary Ahumada M.D. on 11/16/2020 at 16:14
== END ==
PROVIDERS: PCP Family Medicine; Referring Provider Family Medicine; Visit Provider Family Medicine
DX: O40.3XX0 Polyhydramnios, third trimester, not applicable or unspecified (principal); Z3A.30 30 weeks gestation of pregnancy
CPT/HCPCS: 76815

== ENCOUNTER → 2020-12-08 17:11 | Outpatient (CLI) | payer OTHER, SELFPAY ==
--- NOTE | 2020-12-08 17:11 | DI.US.S_ITS ---
PROCEDURE: US OB LIMITED INDICATIONS: check growth, polyhydramnios OUTSIDE/PRIOR DATING DATA: Last menstrual period (LMP): 04/22/2020. LMP-based estimated date of delivery (CISCO): 01/28/2020. First dating scan (date and location): 06/19/2020. Estimated date of delivery (CISCO) from first dating scan: 01/25/2021. TECHNIQUE: Real-time scanning was performed of the fetus, with image documentation. COMPARISON: [facility], OB <= 14 WEEKS FETUS, 06/19/2020, 17:29. [facility] OB >= 14 WEEKS FETUS, 09/06/2020, 12:23. [facility] OB LIMITED, 10/27/2020, 14:21. [facility] OB LIMITED, 11/09/2020, 12:34. [facility] OB LIMITED, 11/16/2020, 15:24. FINDINGS: A single living intrauterine gestation is present. Presentation: Breech. Placenta: Placental position is posterior, without previa. Amniotic fluid index: 12.3 cm, normal range is 5-24 cm. Largest pocket measures 4.3 cm. heart rate: 160 beats per minute. Maternal cervical canal: Not well seen. Estimated gestational age from initial scan: 33 weeks 1 day Composite gestational age from current scan : 34 weeks 0 days BPD: 8.4 cm, 33 weeks 5 days HC: 31.8 cm, 34 weeks 3 days AC: 30.4 cm, 34 weeks 2 days FL: 6.5 cm, 33 weeks 2 days EFW: 2328 g, 69th percentile IMPRESSION: 1. Single living intrauterine in breech position demonstrating appropriate interval growth with estimated weight at the 69th percentile. 2. Amniotic fluid index within normal limits on current study. Dictated by: Neil Marina M.D. on 12/09/2020 at 0:31 Approved by: Neil Marina M.D. on 12/09/2020 at 0:36
== END ==
PROVIDERS: PCP Family Medicine; Referring Provider Family Medicine; Visit Provider Family Medicine
DX: O40.3XX0 Polyhydramnios, third trimester, not applicable or unspecified (principal); Z3A.33 33 weeks gestation of pregnancy
CPT/HCPCS: 76815

== ENCOUNTER → 2020-12-28 15:15 | Outpatient (CLI) | payer OTHER, SELFPAY ==
[2020-12-29 14:39] LABS: Strep Grp B PCR NEG for Grp B Strep
== END ==
PROVIDERS: PCP Family Medicine; Visit Provider Family Medicine
DX: Z34.90 Encounter for supervision of normal pregnancy, unspecified, unspecified trimester (principal); Z3A.36 36 weeks gestation of pregnancy
CPT/HCPCS: 87653

== ENCOUNTER 2021-01-12 02:55 | Observation (INO) | payer OTHER, SELFPAY | END 2021-01-12 05:37 | disposition home or self-care (01) | LOC: LABOR 03:22 | PROVIDERS: Admitting Provider Obstetrics & Gynecology; PCP Family Medicine; Referring Provider Obstetrics & Gynecology; Visit Provider Obstetrics & Gynecology | DX: O47.1 False labor at or after 37 completed weeks of gestation (principal); Z3A.38 38 weeks gestation of pregnancy | CPT/HCPCS: 59025; 59050; G0378; G0379 ==

== ENCOUNTER 2021-01-18 06:59 | Inpatient (IN) | payer OTHER, SELFPAY ==
--- NOTE | 2021-01-18 07:33 | PM.OBHP.1 ---
OB HPI Date/Time Date of admission: 01/18/21 Date Patient Seen: 01/18/21 Time Patient Seen: 07:10 History of Present Condition Chief complaint: OBSERVATION : 2 Para: 1 Estimated Date of Delivery: 01/25/21 Estimated Gestational Age (weeks): 39 Narrative: Regina Moody is a 25 year old at 39 weeks gestation here for induction due to history of macrosomia as well as maternal discomfort. was complicated by polyhydramnios found at twenty-six weeks. 1 hour GTT was elevated however patient monitored sugars q.i.d. for 1 month and all normal so no diagnosis of gestational diabetes made. Polyhydramnios resolved by 34 weeks as well. Estimated weight at that time was sixty-ninth percentile. Patient took prophylactic Valtrex for history of genital herpes without outbreaks during . Denies leaking or bleeding and reports frequent movement. Indications Indication for induction OB: maternal discomfort and other (h/o macrosomia) History of Present care: good care, initiated at week # (10), number of visits (14) and pounds weight gain (28) Dating criteria: LMP confirmed by 1st trimester US Abnormal ultrasound findings: Polyhydramnios as per HPI, resolved by 34 weeks. Normal anatomy. Obstetrical complications: other (Transient polyhydramnios) Medical complications: none Preadmission Labs Blood type: O (+) positive -: Antibody screen: negative, GBS status: negative, HIV: negative, HSV 2: positive (On Valtrex) and RPR/VDLR: negative -: Chlamydia screen: not detected and Gonorrhea screen: not detected -: Rubella: not immune and Varicella: immune HCT: 31.9 HCAB: negative PAP: Normal 1 hr GTT: 148 Narrative: Vomited during 3 hr GTT, monitored sugars QID for one month and all normal Prior (ies) History: 07/19/18 at 40.6 weeks, 9 lb 3 oz male, epidural, breast fed 14 months, [facility] with Kyle Arellano Evaluation Evaluation Baseline heart rate: 140 Variability: Moderate (11-25) monitor accelerations: Present Monitor Decelerations: Absent Contraction Frequency (minutes): 3 Uterine Contraction Intensity: Mild Status: Category l Cervical dilation (cm): 2 Cervical effacement (%): 50 station: -3 [facility] Medical History Anxiety Asthma Genital herpes (~2015) (spontaneous vaginal delivery) Surgical History History of surgical removal of ganglion cyst (~05/10/20) Sedated Family History Mother Hypertension Mental health problem Ovarian cyst Depression Anxiety Grandfather Cancer Stroke Parkinson's disease Grandmother Cancer Mental health problem Grandfather Cancer Grandmother Hypertension Congestive heart failure Father Cancer Social History marital status: number of children: 1 household members: spouse and children lives independently: Yes caregiver/support person: No housing: apartment pets and animals: No education level: high school 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 Very occasional, once every few weeks.) during the past year weight has: remained stable Type(s) of exercise: walking frequency: daily duration: 45-60 minutes/day Meds Home Medications and Allergies Home Medications Medication Instructions Recorded Confirmed Type valacyclovir [Valtrex] 500 mg PO DAILY 07/19/18 07/27/20 History docusate sodium 100 mg capsule 100 mg PO DAILY 06/23/20 07/27/20 History doxylamine succinate 25 mg tablet 25 mg PO BEDTIME PRN 06/23/20 07/27/20 History amanda (Zingiber officinalis) 550 550 mg PO DAILY 06/23/20 07/27/20 History mg capsule omega-3 fatty acids 1,000 mg 1,000 mg PO DAILY 06/23/20 07/27/20 History capsule prenat.vits,ciro,jsm-ncmx-kbbws 1 tab PO DAILY #90 tab 06/23/20 07/27/20 Rx simethicone 125 mg capsule 125 mg PO QPCHS 06/23/20 07/27/20 History sertraline 50 mg tablet 50 mg PO DAILY #30 tab 08/24/20 08/24/20 Rx metronidazole 250 mg tablet 250 mg PO TID #21 tab 10/24/20 Rx blood sugar diagnostic #100 ea 11/02/20 11/02/20 Rx ferrous gluconate 236 mg (27 mg 236 mg PO DAILY #30 tab 11/02/20 11/02/20 Rx iron) tablet lancets #200 ea 11/02/20 11/02/20 Rx Allergies Allergy/AdvReac Type Severity Reaction Status Date / Time adhesive AdvReac Intermediate Red Verified 06/23/20 13:38 blistery rash Review of Systems Review of Systems ROS: Yes All systems reviewed with the patient and are negative except as otherwise documented Exam Vital Signs (past 8 hours): Temperature 36.7? blood pressure 114/73 heart rate 95 Const General: healthy appearing and comfortable HENMT Head: normal to inspection Ears: hearing grossly normal bilaterally Nose: external nose normal Face and sinus: normal facial exam Mouth: oral mucosae normal Eyes General: appearance normal, both eyes and all related structures Neck Neck: normal visual inspection Resp Effort & Inspection: normal respiratory effort Auscultation: clear to auscultation bilaterally Cardio Rate: regular rate Rhythm: regular rhythm Heart Sounds: no murmurs GI Other: Gravid External Female Exam: normal external appearance Manual OB Exam: dilated 2, effaced 50% and station high Presentation: vertex Estimated Weight (lbs): 8 Back/Spine/Pelvis Back: normal to inspection Skin General: no rashes or lesions noted Extrem General: normal to inspection and no pedal edema Assessment and Plan Assessment and Plan Assessment and Plan narrative: 25 year old at 39 weeks gestation here for induction for h/o macrosomia and maternal discomfort. head was lower in the office 2 days ago and high in the pelvis today. Confirmed vertex with bedside US. Plan Pitocin per protocol Encourage patient up out of bed for descent GBS negative, no indication for prophylaxis Epidural upon request Anticipate
[2021-01-18] MEDS: LACTATED RINGERS 1,000 ML 100 ML IV ×2 (07:38→19:08)
[2021-01-18 08:36] LABS: Add Manual Diff / Slide Review NO; Basophils Absolute Auto 0 /uL (0-100); Basophils Percent Auto 0.2 % (0-2); Eosinophils Absolute Auto 0 /uL (0-450); Eosinophils Percent Auto 0.5 % (2-4); Hematocrit 36.7 % (36-46); Hemoglobin 12.6 g/dL (12.0-16.0); Lymphocytes Absolute Auto 2300 /uL (1100-4500); Lymphocytes Percent Auto 29.4 % (25-40); Mean Corpuscular HGB Conc 34.5 % (30-36); Mean Corpuscular Hemoglobin 30.7 PG (26-34); Monocytes Absolute Auto 600 /uL (0-900); Monocytes Percent Auto 7.5 % (3-14); Neutrophils Absolute Auto 4900 /uL (1500-7000); Neutrophils Percent Auto 62.4 % (50-75); Platelet Count 179 X10^3/uL (150-400); Red Blood Cell Count 4.12 X10^6/uL (4.0-5.2); White Blood Cell Count 7.9 X10^3/uL (4.5-11.0)
[2021-01-18] MEDS: OXYTOCIN PREMIX 30 UNIT/500 ML PLAST..BAG IV (09:19)
[2021-01-18 10:24] LABS: COVID19 - ADMIT (NP swab/PCR) Negative (Negative)
[2021-01-18 10:34] VITALS: BP 114/73
--- NOTE | 2021-01-18 12:49 | PM.OBPNLAB ---
Date/Time Date Patient Seen: 01/18/21 Time Patient Seen: 12:40 Pain Control Pain control: tolerating well Comments: Starting to feel contractions more but not yet painful. Pelvic Exam Dilation (cm): 3 Effacement (%): 70 station: -2 Contractions Monitor mode: External Pitocin rate (mU/min): 9 Contraction frequency (min): 2 Contraction pattern: Regular Contraction intensity: Moderate Status status: Category l Heart Rate Baseline: 140 Monitor Accelerations: Present Monitor Decelerations: Absent Monitor Variability: Moderate Assessment and Plan Assessment: induction ongoing Plan: continuous present management Comments: Continue pitocin, recheck in 2 hours, possible AROM at that time.
[2021-01-18] MEDS: CALCIUM CARBONATE 500 MG TAB 1000 MG PO ×2 (13:59→20:39)
--- NOTE | 2021-01-18 15:15 | PM.OBPNLAB ---
Date/Time Date Patient Seen: 01/18/21 Time Patient Seen: 15:00 Pain Control Pain control: tolerating well Comments: More uncomfortable with contractions, breathing through them. Not ready for epidural yet. Pelvic Exam Dilation (cm): 4 Effacement (%): 70 station: -2 Amniotic membrane status: Ruptured (AROM large amount of clear fluid) Contractions Monitor mode: External Pitocin rate (mU/min): 12 Contraction frequency (min): 2 Contraction pattern: Irregular Contraction intensity: Moderate Status status: Category l Heart Rate Baseline: 130 Monitor Accelerations: Present Monitor Decelerations: Absent Monitor Variability: Moderate Assessment and Plan Assessment: induction ongoing Plan: continuous present management Comments: AROM with copious clear fluid. Continue pitocin. Epidural upon request.
--- NOTE | 2021-01-18 18:04 | PM.OBPNLAB ---
Date/Time Date Patient Seen: 01/18/21 Time Patient Seen: 17:50 Pain Control Pain control: tolerating well Comments: Feeling more uncomfortable, considering epidural but likes being able to be up out of bed. Pelvic Exam Dilation (cm): 5 Effacement (%): 70 station: -2 Amniotic membrane status: Ruptured (AROM large amount of clear fluid) Contractions Monitor mode: External Pitocin rate (mU/min): 9 Contraction frequency (min): 3 Contraction pattern: Regular Status status: Category l Heart Rate Baseline: 150 Monitor Accelerations: Present Monitor Decelerations: Absent Monitor Variability: Moderate Assessment and Plan Assessment: induction ongoing Plan: continuous present management Comments: Doing well though making slow progress. Continue to titrate pitocin. Suspect she is about to enter active labor.
[2021-01-18] MEDS: FENT 2MCG/ML BUPIV 0.125% EPI 200 MCG/100 ML PLAST..BAG 13 MCG EPIDURAL (20:04)
--- NOTE | 2021-01-18 21:16 | PM.OBPNLAB ---
Date/Time Date Patient Seen: 01/18/21 Time Patient Seen: 21:10 Pain Control Pain control: tolerating well and epidural Comments: Comfortable with epidural Pelvic Exam Dilation (cm): 6 Effacement (%): 70 station: -1 Amniotic membrane status: Ruptured (AROM large amount of clear fluid) Contractions Monitor mode: External Pitocin rate (mU/min): 12 Contraction frequency (min): 3 Contraction pattern: Regular Contraction intensity: Moderate Status status: Category ll Heart Rate Baseline: 130 Monitor Accelerations: Present Monitor Decelerations: Late (intermittent) and Variable (intermittent) Monitor Variability: Moderate Assessment and Plan Assessment: active labor Plan: continuous present management Comments: Slow cervical change, will consider IUPC if no progress at next check in 1-2 hours. EFM with late vs variable decels at times though not recurrent. Continue frequent position change with peanut ball to encourage descent.
--- NOTE | 2021-01-18 22:16 | PM.OBPNLAB ---
Date/Time Date Patient Seen: 01/18/21 Time Patient Seen: 22:00 Pain Control Pain control: tolerating well and epidural Comments: Feeling intermittent pressure with contractions. Pelvic Exam Dilation (cm): 8 Effacement (%): 100 station: -1 Amniotic membrane status: Ruptured (AROM large amount of clear fluid) Contractions Monitor mode: External Pitocin rate (mU/min): 12 Contraction frequency (min): 3 Contraction pattern: Regular Contraction intensity: Moderate Status status: Category ll Heart Rate Baseline: 130 Monitor Accelerations: Present Monitor Decelerations: Early (intermittent) and Late (intermittent) Monitor Variability: Minimal Assessment and Plan Assessment: active labor Plan: continuous present management Comments: Good progress in the last hour. Continue pitocin. Encourage frequent position change to facilitate descent.
--- NOTE | 2021-01-19 01:50 | PM.OBPRVD ---
Labor & Delivery Delivery date: 01/19/21 Induction method: per pitocin protocol Delivery augmentation: rupture of membranes Delivery monitor: external FHT Route of delivery: L&D Laceration Description: Vaginal - 2nd Degree Delivery repair: chromic Estimated blood loss (mL): 350 Anesthesia Type: Epidural Narrative: VAGINAL DELIVERY NOTE Date 11/19/20 BRIEF HISTORY: Patient is a 25-year-old at 39 weeks who gave on 11/19/20 at 01:28. CISCO: 11/25/20 Hospital problems: 39 weeks of STAGE I: Labor Patient presented for induction of labor due to history of macrosomia and shoulder dystocia. She received Pitocin per protocol. Artificial rupture membranes occurred at 3:00 p.m. with copious clear fluid. She went on to receive an epidural with excellent pain control. She was complete on 11/19/20 at 12:33 a.m.. heart tones were category 1 and 2 throughout stage I due to intermittent variable and late decelerations. Stage I duration 9 hours and 33 minutes. STAGE II: Delivery Patient was complete and pushed for 55 minutes. She went on to deliver a vigorous female infant in the SOPHIE position. was immediately placed on mother's abdomen. Cord was clamped and cut after approximately 2 minute delay. Apgars were 8 and 9. No resuscitation of the required. weight 3783 g. STAGE III: Placenta/Cord Placenta delivered at 1:34 a.m. after active management and appeared intact with a 3 vessel cord. The third stage of labor lasted 6 minutes. A second degree vaginal laceration was repaired in the usual fashion with 3-O chromic. Fundus firm below umbilicus after repair. EBL: 350 mL. Needle and sponge counts were correct. The vagina was inspected and no items were left in situ. Patient was doing well with Lawanda, her and at bedside. [place] Baby 1: gender: Female Presentation: vertex Position: Right Occiput Anterior Placenta delivery description: Spontaneous Cord Vessel Description: 3 Vessels score (1 min): 8 score (5 min): 9 Plan for aftercare: Routine care
[2021-01-19] MEDS: IBUPROFEN 600 MG TABLET PO ×4 (03:26→21:23)
[2021-01-19] MEDS: LANOLIN OINT 7 GM 1 APPLIC TOP (05:30)
[2021-01-19] MEDS: DERMOPLAST SPRAY 20% 60 ML 1 SPRAY TOP (05:31)
[2021-01-19] MEDS: ACETAMINOPHEN 325 MG TABLET 650 MG PO ×3 (06:34→20:12)
[2021-01-19] MEDS: DOCUSATE 100 MG CAPSULE PO (09:13)
[2021-01-19] MEDS: valACYclovir 500 MG TABLET PO (09:13)
[2021-01-19 09:16] VITALS: TEMP 36.9
--- NOTE | 2021-01-19 09:25 | PM.OBPN.1 ---
Subjective - OB Subjective Patient comments: no complaints, pain well controlled and tolerating diet baby status: doing well and nursing well feeding status: exclusively breast feeding Date Patient Seen: 01/19/21 Time Patient Seen: 09:10 Interval history: Doing well this morning. Very tired. Bleeding is light to moderate and pain controlled with Tylenol and ibuprofen. She has been up to the bathroom successfully. well, no concerns in . Exam Vital Signs (past 8 hours): - 01/19/21 09:16 Temperature 98.5 F Temperature 98.9? blood pressure 117/73 heart rate 85 respirations 16 Narrative Exam Narrative: General: Awake and alert, no acute distress. HEENT: NCAT, EOMI, moist oral mucosa CV: Regular rate and rhythm, no murmurs, rubs or gallops Lungs: CTAB, no wheezes, rales, or rhonchi Abdomen: Soft, nontender; bowel tones active; uterus firm 1 cm below umbilicus Extremities: Warm, trace edema bilaterally Objective Labs Result Diagrams: 01/18/21 08:00 Labs: Laboratory Results - last 24 hr 01/18/21 08:00 SARS-CoV-2 (PCR) Negative Assessment & Plan Assessment and Plan (1) Spontaneous vaginal delivery: Status: Acute (2) 39 weeks gestation of : Status: Acute Plan day: 0 plan OB: routine care Comments: Doing well after . Anticipate discharge home tomorrow. Time Spent With Patient Time: Total time spent is greater than 50% in coordination of care (as documented) at patient's floor/unit and/or counseling patient: Time with patient: 15-24 minutes
[2021-01-19 13:23] VITALS: TEMP 36.9
[2021-01-19 15:11] VITALS: TEMP 37
[2021-01-19] MEDS: PRENATAL VIT,CALC/IRON/FOLIC 1 TABLET 1 TAB PO (23:26)
[2021-01-19] MEDS: FERROUS SULFATE 325 MG TABLET PO (23:26)
[2021-01-20] MEDS: ACETAMINOPHEN 325 MG TABLET 650 MG PO ×2 (02:02→08:16)
[2021-01-20] MEDS: IBUPROFEN 600 MG TABLET PO ×2 (03:49→10:50)
[2021-01-20] MEDS: DOCUSATE 100 MG CAPSULE PO (08:15)
--- NOTE | 2021-01-20 08:56 | P.DS_ITS ---
Discharge Providers Provider Date of admission: 01/18/21 06:59 Discharge Date: 01/20/21 Primary care physician: Maty Easton DO Consults: 01/20/21 01:55 Consult to Sample Carrier Routine Comment: Discharge provider: Maty Easton DO Summary Hospital Course Date Patient Seen: 01/20/21 Time Patient Seen: 09:13 Diagnoses: 39 weeks of Spontaneous vaginal delivery Hospital Course: Patient is a 25-year-old now 2 after uncomplicated spontaneous vaginal delivery 01/19/21 at 39 weeks and 1 day gestation. Patient was admitted for induction due to history of macrosomia with shoulder dystocia. She received Pitocin per protocol, received an epidural then went on to deliver a vigorous female . A second-degree vaginal laceration was repaired in the usual fashion. course uncomplicated. Patient was ambulating, voiding, passing flatus and eating without difficulty. Vaginal bleeding was light and pain controlled with ibuprofen and Tylenol. Breast-feeding going well, no issues in the . Advised patient to call for fevers, severe pain or bleeding through more than a pad an hour. Follow-up in clinic in 6 weeks. Peripartum Data Infant Delivery Method: Natural Vaginal Laceration Description: Vaginal - 2nd Degree complications: none [place] 1: Gender: Female Disposition of : home Discharge Diagnosis (1) Spontaneous vaginal delivery: Status: Acute (2) 39 weeks gestation of : Status: Acute Status at Discharge Cognitive/behavioral status at discharge: at baseline, oriented Functional status at discharge: independent ambulation Overall status at discharge: patient is progressing back to baseline Time Spent with Patient Time attestation: Total time spent providing and/or coordinating discharge services: Time spent: Less than 30 minutes Objective Labs Result Diagrams: 01/18/21 08:00 Exam Vital Signs (past 8 hours): Temperature 98.2? blood pressure 118/77 heart rate 90 Narrative Exam Narrative: General: Awake and alert, no acute distress. HEENT: NCAT, EOMI, moist oral mucosa CV: Regular rate and rhythm, no murmurs, rubs or gallops Lungs: CTAB, no wheezes, rales, or rhonchi Abdomen: Soft, nontender; bowel tones active; uterus firm 1 cm below umbilicus Extremities: Warm, no edema, 2+ pedal pulses bilaterally Discharge Plan Discharge Plan Patient Disposition: Home Discharge orders & Medications Prescriptions: New docusate sodium [DOK] 100 mg Capsule 100 mg PO DAILY Qty: 30 RF: 0 ibuprofen 600 mg Tablet 600 mg PO Q6HR PRN (Reason: Pain, Mild (1-3)) Qty: 30 RF: 0 Continued sertraline 50 mg tablet 50 mg PO DAILY Qty: 30 RF: 3 prenat.vits,ciro,quh-[id number] Tablet 1 tab PO DAILY Qty: 90 RF: 3 amanda (Zingiber officinalis) 550 mg capsule 550 mg PO DAILY RF: 0 omega-3 fatty acids [Fish Oil Concentrate] 1,000 mg capsule 1,000 mg PO DAILY RF: 0 simethicone [Gas-X Extra Strength] 125 mg capsule 125 mg PO QPCHS RF: 0 valacyclovir [Valtrex] 500 mg Tablet 500 mg PO DAILY RF: 0 Discontinued ferrous gluconate 236 mg (27 mg iron) tablet 236 mg PO DAILY Qty: 30 RF: 3 (DME) Blood Glucose Test Strip See Rx Instructions .ROUTE .MEDSUPPLY Qty: 100 RF: 11 (DME) lancets Misc See Rx Instructions .ROUTE .MEDSUPPLY Qty: 200 RF: 11 metronidazole 250 mg tablet 250 mg PO TID Qty: 21 RF: 0 Unisom (doxylamine) 25 mg tablet 25 mg PO BEDTIME PRNRF: 0 docusate sodium [Stool Softener] 100 mg capsule 100 mg PO DAILY RF: 0 Follow up/Referrals: Maty Easton DO [Primary Care Provider] - 6 Weeks Visit Report/Discharge Packet Visit Report Forms: Patient Portal/API, Stroke Signs & Symptoms Discharge Data Primary Care Provider: Maty Easton
[2021-01-20 09:14] VITALS: BP 118/77; PULSE 90; RESP 17; TEMP 36.7
[2021-01-20] MEDS: LANOLIN OINT 7 GM 1 APPLIC TOP (10:47)
[2021-01-20] MEDS: MEASLES,MUMPS,RUBELLA VACC/PF 0.5 ML VIAL SUBCUT (10:48)
== END 2021-01-20 11:00 | disposition home or self-care (01) | DRG 806 ==
PROVIDERS: Admitting Provider Family Medicine; PCP Family Medicine; Referring Provider Family Medicine; Visit Provider Family Medicine
DX: O40.3XX0 Polyhydramnios, third trimester, not applicable or unspecified (principal); O98.32 Other infections with a predominantly sexual mode of transmission complicating childbirth; Z37.0 Single live birth; B00.9 Herpesviral infection, unspecified; O76 Abnormality in fetal heart rate and rhythm complicating labor and delivery; O70.1 Second degree perineal laceration during delivery; Z3A.39 39 weeks gestation of pregnancy; Z20.822 Contact with and (suspected) exposure to COVID-19
CPT/HCPCS: 01967; 36415; 59050; 59400; 85025; 86850; 86900; 86901; 87635; C9803; G0379; J2590

== ENCOUNTER 2021-09-19 11:41 | Emergency (ER) | payer OTHER, SELFPAY ==
[2021-09-19] VITALS (11 sets, daily range): BP systolic 96–120; BP diastolic 49–78; PULSE 69–100; RESP 14–24; TEMP 36.5; O2SAT 95–99; BMI 32.0
--- NOTE | 2021-09-19 14:44 | PC.NURSE ---
stand by assistance to restroom
--- NOTE | 2021-09-19 14:50 | ED_ITS ---
HPI - Nausea/Vomiting/Diarrhea General Chief complaint: Nausea/Vomiting/Diarrhea Stated complaint: Continual vomiting, tingling/numbness in limbs Time Seen by Provider: 09/19/21 13:08 Source: patient Mode of arrival: Wheelchair History of Present Illness HPI Narrative: Patient here for nausea and vomiting no diarrhea. No fever or body aches chills or coughing. Patient seen last night at local hospital for numbness tingling and vomiting that started 4:30 p.m. yesterday. Was given Ativan at that hospital. Patient also had CT angiogram of head and neck which was unremarkable as well as EKG. Patient continues to have nausea and vomiting. Patient is COVID vaccinated. Denies any sick contacts. Denies being . Patient is breast feeding. Patient provided urine sample here. It is dark in color. Patient states she has been under stress with taking care of 2 small children. Related Data Home Medications Medication Instructions Recorded Confirmed valacyclovir 500 mg tablet 500 mg PO DAILY 07/19/18 03/19/21 (Valtrex) amanda (Zingiber officinalis) 550 550 mg PO DAILY 06/23/20 03/19/21 mg capsule omega-3 fatty acids 1,000 mg 1,000 mg PO DAILY 06/23/20 03/19/21 capsule (Fish Oil Concentrate) simethicone 125 mg capsule (Gas-X 125 mg PO QPCHS 06/23/20 03/19/21 Extra Strength) Previous Rx's Medication Instructions Recorded prenat.vits,ciro,pic-tpcs-nnmcs 1 tab PO DAILY #90 tab 06/23/20 sertraline 50 mg tablet 50 mg PO DAILY #30 tab 08/24/20 docusate sodium 100 mg capsule 100 mg PO DAILY #30 cap 01/20/21 (DOK) ibuprofen 600 mg tablet 600 mg PO Q6HR PRN #30 tab 01/20/21 cephalexin 500 mg capsule 500 mg PO QID #56 cap 04/13/21 ondansetron 4 mg disintegrating 4 mg PO Q8H PRN #10 tab 09/19/21 tablet Allergies Allergy/AdvReac Type Severity Reaction Status Date / Time adhesive AdvReac Intermediate Red Verified 09/19/21 11:48 blistery rash Review of Systems Review of Systems Narrative: GENERAL: Denies chills, positive for fatigue, malaise, denies fever, sweats. HEENT: Denies sinus pain, ear pain, sore throat RESPIRATORY: Denies dyspnea, cough CARDIOVASCULAR: Denies chest pain, palpitations GASTROINTESTINAL: Complainsnausea, vomiting, denies diarrhea and abdominal pain : Denies dysuria, frequency, hematuria MUSCULOSKELETAL: denies muscle or bony pain SKIN: Denies rash, skin lesions NEUROLOGIC: Positive weakness/numbness/tingling ROS Unobtainable: All systems reviewed & are unremarkable except as noted in HPI and below Patient History Medical History Anxiety Asthma Genital herpes (~2015) Spontaneous vaginal delivery Surgical History History of surgical removal of ganglion cyst (~05/10/20) Sedated Family History Mother Hypertension Mental health problem Ovarian cyst Depression Anxiety Grandfather Cancer Stroke Parkinson's disease Grandmother Cancer Mental health problem Grandfather Cancer Grandmother Hypertension Congestive heart failure Father Cancer Social History marital status: number of children: 1 household members: spouse and children lives independently: Yes caregiver/support person: No housing: apartment pets and animals: No education level: high school 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 Very occasional, once every few weeks.) during the past year weight has: remained stable Type(s) of exercise: walking frequency: daily duration: 45-60 minutes/day Smoking Status: Never smoker alcohol intake frequency: a few times a week Substance Use Type: does not use Exam Narrative Exam Narrative: GENERAL: in no distress, not toxic not dyspneic HEAD: Normocephalic. EYES: Pupils equal round No scleral icterus. ENT: Mucous membranes moist. Has dry lips NECK: Trachea midline. CARDIOVASCULAR: Regular rate and rhythm without murmurs RESPIRATORY: Clear to auscultation. Breath sounds equal bilaterally. No wheezes, rales, or rhonchi. GASTROINTESTINAL: Abdomen soft, non-tender EXTREMITIES: No gross deformities. BACK: No flank tenderness. NEURO: AOx4. SKIN: Warm and dry PSYCH: Not anxious, is cooperative Initial Vital Signs Initial Vital Signs: Vital Signs Temperature 97.7 F 09/19/21 11:48 Pulse Rate 79 09/19/21 11:48 Respiratory Rate 14 09/19/21 11:48 Blood Pressure 113/65 09/19/21 11:48 Pulse Oximetry 98 09/19/21 11:48 Course Course Course Narrative: No new issues during course of stay Orders Ordered: Discontinued Medications Acetaminophen (Acetaminophen 325 Mg Tablet) 650 mg PO NOW ONE Stop: 09/19/21 18:35 Last Admin: 09/19/21 18:40 Dose: 325 mg Documented by: MIQUEL Acetaminophen (Acetaminophen 325 Mg Tablet) 325 mg PO NOW ONE Stop: 09/19/21 18:46 Last Admin: 09/19/21 18:48 Dose: 325 mg Documented by: BAL Sodium Chloride (Normal Saline 0.9%) 1,000 mls @ 1,000 mls/hr IV BOLUS ONE Stop: 09/19/21 15:41 Last Infusion: 09/19/21 16:41 Dose: 0 mls/hr Documented by: Admin: 09/19/21 14:55 Dose: 1,000 mls/hr Documented by: MIQUEL Sodium Chloride (Normal Saline 0.9%) 1,000 mls @ 1,000 mls/hr IV BOLUS ONE Stop: 09/19/21 16:11 Last Infusion: 09/19/21 17:43 Dose: 0 mls/hr Documented by: Admin: 09/19/21 16:41 Dose: 1,000 mls/hr Documented by: ALESSIO Ketorolac Tromethamine (Ketorolac 30 Mg/Ml Vial) 15 mg IV NOW ONE Stop: 09/19/21 18:36 Last Admin: 09/19/21 18:41 Dose: 15 mg Documented by: MIQUEL Ondansetron HCl (Ondansetron 4 Mg Odt) 4 mg SL NOW ONE Stop: 09/19/21 13:09 Last Admin: 09/19/21 14:55 Dose: 4 mg Documented by: MIQUEL Reevaluation(s) Reevaluation #1: Patient feeling much better. After medications and IV fluids. Reviewed with patient laboratory studies and imaging. She agrees with treatment plan and prescription for Zofran and follow-up with primary care. Return precautions reviewed with her Time: 16:57 Reevaluation #2: Resting comfortably. Awaiting for her ride home Time: 17:27 Vital Signs Vital signs: Vital Signs - 8 hr 09/19/21 11:48 Temperature 97.7 F Pulse Rate 79 Respiratory Rate 14 Blood Pressure 113/65 Pulse Oximetry 98 MDM - Nausea/Vomiting/Diarrhea Differential Diagnosis Differential diagnosis: Likely gastroenteritis, dehydration and other (Stress) Lab Data Result diagrams: 09/19/21 15:01 09/19/21 15:01 Labs: Lab Results 09/19/21 09/19/21 09/19/21 Range/Units 15:01 15:01 15:14 WBC 13.8 H (4.5-11.0) X10^3/uL RBC 4.74 (4.0-5.2) X10^6/uL Hgb 13.9 (12.0-16.0) g/dL Hct 40.5 (36-46) % MCV 85.4 (80-100) fL MCH 29.2 (26-34) PG MCHC 34.2 (30-36) % RDW 12.8 (11.6-14.8) % Plt Count 231 (150-400) X10^3/uL Neut % (Auto) 88.1 H (50-75) % Lymph % (Auto) 9.5 L (25-40) % [place] % (Auto) 2.2 L (3-14) % Eos % (Auto) 0.0 L (2-4) % Baso % (Auto) 0.2 (0-2) % Neut # (Auto) 96406 H (0893-7615) /uL Lymph # (Auto) 1300 (1581-8032) /uL [place] # (Auto) 300 (0-900) /uL Eos # (Auto) 0 (0-450) /uL Baso # (Auto) 0 (0-100) /uL Sodium 139 (137-145) mmol/L Potassium 4.4 (3.4-5.1) mmol/L Chloride 103 (98-107) mmol/L Carbon Dioxide 27 (22-32) mmol/L BUN 12 (7-17) mg/dL Creatinine 0.60 (0.52-1.04) mg/dL Estimated GFR > 60.0 (>60) mL/min BUN/Creatinine Ratio 20.0 (6-22) Glucose 110 H (70-100) mg/dL Calcium 10.3 H (8.4-10.2) mg/dL Total Bilirubin 0.6 (0.2-1.3) mg/dL AST 25 (14-36) IU/L ALT 27 (<35) IU/L Alkaline Phosphatase 53 (38-126) U/L Total Protein 8.1 (6.3-8.2) g/dL Albumin 5.0 (3.5-5.0) g/dL Globulin 3.1 (1.7-4.1) g/dL Albumin/Globulin Ratio 1.6 (1.0-2.8) Urine RBC (0-5/HPF) Urine WBC (0-5/HPF) Ur Squamous Epith Cells (0-5/HPF) Other Crystals Urine Bacteria (None) Ur Culture Indicated? SARS-CoV-2 (PCR) Negative (Negative) 09/19/21 Range/Units 15:14 WBC (4.5-11.0) X10^3/uL RBC (4.0-5.2) X10^6/uL Hgb (12.0-16.0) g/dL Hct (36-46) % MCV (80-100) fL MCH (26-34) PG MCHC (30-36) % RDW (11.6-14.8) % Plt Count (150-400) X10^3/uL Neut % (Auto) (50-75) % Lymph % (Auto) (25-40) % [place] % (Auto) (3-14) % Eos % (Auto) (2-4) % Baso % (Auto) (0-2) % Neut # (Auto) (4074-1113) /uL Lymph # (Auto) (1500-2446) /uL [place] # (Auto) (0-900) /uL Eos # (Auto) (0-450) /uL Baso # (Auto) (0-100) /uL Sodium (137-145) mmol/L Potassium (3.4-5.1) mmol/L Chloride (98-107) mmol/L Carbon Dioxide (22-32) mmol/L BUN (7-17) mg/dL Creatinine (0.52-1.04) mg/dL Estimated GFR (>60) mL/min BUN/Creatinine Ratio (6-22) Glucose (70-100) mg/dL Calcium (8.4-10.2) mg/dL Total Bilirubin (0.2-1.3) mg/dL AST (14-36) IU/L ALT (<35) IU/L Alkaline Phosphatase (38-126) U/L Total Protein (6.3-8.2) g/dL Albumin (3.5-5.0) g/dL Globulin (1.7-4.1) g/dL Albumin/Globulin Ratio (1.0-2.8) Urine RBC 0-1/hpf (0-5/HPF) Urine WBC 0-1/hpf (0-5/HPF) Ur Squamous Epith Cells 5-10 /hpf H (0-5/HPF) Other Crystals 3+ amorphous Urine Bacteria Occasional (0-1) (None) Ur Culture Indicated? Cult not indicated SARS-CoV-2 (PCR) (Negative) Point of Care Testing Test Results Negative Urine Dip Bedside Urine Glucose Negative Bedside Urine Bilirubin - Negative Bedside Urine Ketone +++ 80 Urine Specific [place] 1.010 Bedside Urine Occult Blood - Negative Bedside Urine pH 8.5 Bedside Urine Protein +/- 15 Bedside Urine Urobilinogen - Negative Bedside Urine Nitrite - Negative Bedside Urine Leukocytes - Negative Esterase Imaging Data CT scan - abdomen/pelvis: Radiologist's Impression: [address] [id number] [address] Scan Report Signed Patient: Regina Moody MR#: [id number] : 1995 Acct:[id number] Age/Sex: 26 / F Date of Service: 09/19/21 Loc: ED Accession Number: [id number] ?? Procedure: CT abdomen pelvis w con Ordering Provider: Yuval Corrales MD PROCEDURE:? CT ABDOMEN PELVIS W CON ? INDICATIONS:? IV contrast only/abdominal pain nausea vomiting ? TECHNIQUE:? After the administration of IV contrast, axial sections were acquired from the lung bases to the pubic symphysis.? Coronal and sagittal reformats were performed.? For radiation dose reduction, the following was used:? automated exposure control, adjustment of mA and/or kV according to patient size. ? COMPARISON:? None. ? FINDINGS:? Image quality:? Excellent.? ? Lung bases:? Unremarkable.? ? Heart:? No significant findings. ? ? ABDOMEN: Liver:? Liver is enlarged with steatosis, measuring 18.3 cm. Gallbladder:? Gallbladder demonstrates no stones or visualized wall thickening. Biliary ducts:? Unremarkable.? ? Pancreas:? Unremarkable.? ? Spleen:? Unremarkable.? ? Adrenal Glands:? Unremarkable.? ? Kidneys and Ureters:? Unremarkable.? ? ? Stomach and Bowel:? Stomach, small bowel loops, and colon are unremarkable.? Appendix is unremarkable. Peritoneum:? No abnormal intraperitoneal fluid.? No free air.? ? Ventral Wall: ? Fat containing ventral hernia is present. Abdominal Nodes:? No retroperitoneal or mesenteric adenopathy by size criteria.? Vessels:? Aorta and inferior vena cava are normal in size.? ? PELVIS: Pelvic Organs:? Low-attenuation foci are present within the ovaries most suggestive of prominent follicles. Bladder:? Unremarkable.? ? Pelvic Nodes: No enlarged lymph nodes.? Miscellaneous: No inguinal hernias are seen. ? ? ? Bones:? Unremarkable.? IMPRESSION:? 1. No acute intra-abdominal pelvic process.? ? ? 2. Hepatomegaly with steatosis.? ? Dictated by: Sammie Thornton M.D. on 09/19/2021 at 16:30 ? ? Approved by: Sammie Thornton M.D. on 09/19/2021 at 16:33 ? MDM Narrative Medical decision making narrative: Appropriate for discharge home. Patient not toxic. Exam and laboratory studies and medical records from yesterday visit as well as today imaging reassuring. White cell count nonspecific may be demargination from vomiting. No antibiotics indicated. Patient will receive prescription for Zofran. She did not receive 1 yesterday. She would like to have 1. Return precautions reviewed with her. Bilateral numbness and tingling nonspecific. Could be related to anxiety. Discharge Plan Departure Patient Disposition: Home Clinical Impression: Gastroenteritis Instructions: DI for Vomiting -- Adult Activity Restrictions/Additional Instructions: Keep well hydrated. Return if worsening questions or concerns. See family doctor in a week for recheck. Prescriptions: New ondansetron 4 mg tablet,disintegrating 4 mg PO Q8H PRN (Reason: nausea and vomiting) Qty: 10 0RF No Action sertraline 50 mg tablet 50 mg PO DAILY Qty: 30 3RF cephalexin 500 mg capsule 500 mg PO QID Qty: 56 0RF prenat.vits,ciro,rtr-djgl-wfsss Tablet 1 tab PO DAILY Qty: 90 3RF Rx Instructions: Take one tablet by mouth daily. amanda (Zingiber officinalis) 550 mg capsule 550 mg PO DAILY 0RF omega-3 fatty acids [Fish Oil Concentrate] 1,000 mg capsule 1,000 mg PO DAILY 0RF simethicone [Gas-X Extra Strength] 125 mg capsule 125 mg PO QPCHS 0RF valacyclovir [Valtrex] 500 mg Tablet 500 mg PO DAILY 0RF docusate sodium [DOK] 100 mg Capsule 100 mg PO DAILY Qty: 30 0RF ibuprofen 600 mg Tablet 600 mg PO Q6HR PRN (Reason: Pain, Mild (1-3)) Qty: 30 0RF Referrals: Maty Easton DO [Primary Care Provider] -
[2021-09-19] MEDS: ONDANSETRON 4 MG ODT SL (14:55)
[2021-09-19] MEDS: SODIUM CHLORIDE 0.9% 1,000 ML 1000 ML IV ×2 (14:55→16:41)
[2021-09-19 15:09] LABS: Add Manual Diff / Slide Review NO; Basophils Absolute Auto 0 /uL (0-100); Basophils Percent Auto 0.2 % (0-2); Eosinophils Absolute Auto 0 /uL (0-450); Hematocrit 40.5 % (36-46); Hemoglobin 13.9 g/dL (12.0-16.0); Lymphocytes Absolute Auto 1300 /uL (1100-4500); Lymphocytes Percent Auto 9.5 % (25-40); Mean Corpuscular HGB Conc 34.2 % (30-36); Mean Corpuscular Hemoglobin 29.2 PG (26-34); Mean Corpuscular Volume 85.4 fL (80-100); Monocytes Absolute Auto 300 /uL (0-900); Monocytes Percent Auto 2.2 % (3-14); Neutrophils Absolute Auto 12200 /uL (1500-7000); Neutrophils Percent Auto 88.1 % (50-75); Platelet Count 231 X10^3/uL (150-400); Red Blood Cell Count 4.74 X10^6/uL (4.0-5.2); Red Cell Distribution Width 12.8 % (11.6-14.8); White Blood Cell Count 13.8 X10^3/uL (4.5-11.0)
[2021-09-19 15:35] LABS: COVID19 -Nasal RAPID Negative (Negative)
[2021-09-19 15:35] LABS: Alanine Aminotransferase 27 IU/L (<35); Albumin Globulin Ratio 1.6 (1.0-2.8); Alkaline Phosphatase 53 U/L (38-126); Aspartate Aminotransferase 25 IU/L (14-36); Bilirubin Total 0.6 mg/dL (0.2-1.3); Blood Urea Nitrogen 12 mg/dL (7-17); Calcium 10.3 mg/dL (8.4-10.2); Carbon Dioxide 27 mmol/L (22-32); Chloride 103 mmol/L (98-107); Estimated Glomerular Filt Rate > 60.0 mL/min (>60); Globulin 3.1 g/dL (1.7-4.1); Glucose 110 mg/dL (70-100); HEMOLYSIS < 15 (0-50); Potassium 4.4 mmol/L (3.4-5.1); Sodium 139 mmol/L (137-145); Total Protein 8.1 g/dL (6.3-8.2)
[2021-09-19 15:49] LABS: Bacteria Urine Occasional (0-1); Culture Indicated Urine Cult Not Indicated; Other Crystals Urine 3+ Amorphous; RBC Urine 0-1/HPF (0-5/HPF); Squamous Epithelial Cell Urine 5-10 /HPF (0-5/HPF); WBC Urine 0-1/HPF (0-5/HPF)
--- NOTE | 2021-09-19 15:57 | DI.CT.S_ITS ---
PROCEDURE: CT ABDOMEN PELVIS W CON INDICATIONS: IV contrast only/abdominal pain nausea vomiting TECHNIQUE: After the administration of IV contrast, axial sections were acquired from the lung bases to the pubic symphysis. Coronal and sagittal reformats were performed. For radiation dose reduction, the following was used: automated exposure control, adjustment of mA and/or kV according to patient size. COMPARISON: None. FINDINGS: Image quality: Excellent. Lung bases: Unremarkable. Heart: No significant findings. ABDOMEN: Liver: Liver is enlarged with steatosis, measuring 18.3 cm. Gallbladder: Gallbladder demonstrates no stones or visualized wall thickening. Biliary ducts: Unremarkable. Pancreas: Unremarkable. Spleen: Unremarkable. Adrenal Glands: Unremarkable. Kidneys and Ureters: Unremarkable. Stomach and Bowel: Stomach, small bowel loops, and colon are unremarkable. Appendix is unremarkable. Peritoneum: No abnormal intraperitoneal fluid. No free air. Ventral Wall: Fat containing ventral hernia is present. Abdominal Nodes: No retroperitoneal or mesenteric adenopathy by size criteria. Vessels: Aorta and inferior vena cava are normal in size. PELVIS: Pelvic Organs: Low-attenuation foci are present within the ovaries most suggestive of prominent follicles. Bladder: Unremarkable. Pelvic Nodes: No enlarged lymph nodes. Miscellaneous: No inguinal hernias are seen. Bones: Unremarkable. IMPRESSION: 1. No acute intra-abdominal pelvic process. 2. Hepatomegaly with steatosis. Dictated by: Sammie Thornton M.D. on 09/19/2021 at 16:30 Approved by: Sammie Thornton M.D. on 09/19/2021 at 16:33
[2021-09-19] MEDS: ACETAMINOPHEN 325 MG TABLET 650 MG PO (18:40)
[2021-09-19] MEDS: KETOROLAC 30 MG/ML VIAL 15 MG IV (18:41)
[2021-09-19] MEDS: ACETAMINOPHEN 325 MG TABLET PO (18:48)
== END 2021-09-19 19:00 | disposition home or self-care (01) ==
PROVIDERS: Emergency Provider Emergency Medicine; PCP Family Medicine
DX: K52.9 Noninfective gastroenteritis and colitis, unspecified (principal); R20.2 Paresthesia of skin; Z20.822 Contact with and (suspected) exposure to COVID-19
CPT/HCPCS: 36415; 74177; 80053; 81003; 81015; 81025; 85025; 87635; 96361; 96374; 99284; C9803; J1885